=== PATIENT | female | born 1985 | race Caucasian/White ===

== ENCOUNTER 2018-03-05 11:31 | Observation (INO) | payer MEDICAID ==
[~2018-03-05] VITALS: Ht 165.1 cm; Wt 87.5 kg
[~2018-03-05 11:31] MED LIST: BENZ1TAB61 PO; CLON-365 PO; CLON0.5T PO; CLON1TAB PO; FLUP2.5T PO; FLUP5TAB PO; INVEGA; METR500T PO; TRAZ50TA18 PO; ZIPR20CA2 PO; ZIPR80CA2 PO; [UNRECOGNIZED DRUG - OTHER]
[2018-03-05 12:36] LABS: BASOPHILS # (AUTO) 0.04 x10^3/uL (0-0.1); BASOPHILS % (AUTO) 0 % (0-1); EOSINOPHILS # (AUTO) 0.33 x10^3/uL (0-0.4); EOSINOPHILS % (AUTO) 3 % (1-7); LYMPHOCYTES # (AUTO) 2.25 x10^3/uL (1-3.4); LYMPHOCYTES % (AUTO) 20 % (22-44); MD NO; MEAN CORPUSCULAR HEMOGLOBIN 29.2 pg (27.0-34.8); MEAN CORPUSCULAR VOLUME 85.9 fL (80-100); MEAN PLATELET VOLUME 8.6 fL (7.4-10.4); MONOCYTES # (AUTO) 0.41 x10^3/uL (0.2-0.8); MONOCYTES % (AUTO) 4 % (2-9); NEUTROPHILS # (AUTO) 8.31 x10^3/uL (1.8-6.8); NEUTROPHILS % (AUTO) 73 % (42-75); PLATELET COUNT 382 x10^3/uL (130-400); RED BLOOD COUNT 5.26 x10^6/uL (3.82-5.3); RED CELL DISTRIBUTION WIDTH 13.7 % (9.6-15.2)
[2018-03-05 12:45] LABS: ALBUMIN 4.1 g/dL (3.4-5.0); ANION GAP 9 mmol/L (5-15); CALCIUM 8.6 mg/dL (8.5-10.1); CHLORIDE 109 mmol/L (98-107); SALICYLATE LEVEL 4.5 mg/dL (2.8-20.0)
[2018-03-05 12:48] LABS: ACETAMINOPHEN < 2 mcg/mL (10-30); ALANINE AMINOTRANSFERASE 24 U/L (12-78); ALKALINE PHOSPHATASE 143 U/L (45-117); BILIRUBIN,TOTAL 0.2 mg/dL (0.2-1.0); CREATININE 0.91 mg/dL (0.55-1.02); TOTAL PROTEIN 8.1 g/dL (6.4-8.2)
[2018-03-05 13:24] LABS: AMPHETAMINE SCREEN, URINE Negative (Negative); BARBITURATE SCREEN, URINE Negative (Negative); BENZODIAZEPINE SCREEN, URINE Negative (Negative); CANNABINOID SCREEN, URINE Negative (Negative); COCAINE SCREEN, URINE Negative (Negative); METHADONE SCREEN, URINE Negative (Negative); OPIATE SCREEN, URINE Negative (Negative)
[2018-03-05] MEDS ORDERED: HYDR50CA PO (13:50)
[2018-03-05 16:58] LABS: HCG UR SG 1.016 (1.003-1.030)
[2018-03-05] MEDS ORDERED: ONDANSETRON ODT 4 MG PO PRN (19:00)
[2018-03-05] MEDS: NICOTINE 14MG/24 HR PATCH.TD24 TD SCH (19:00)
[2018-03-05] MEDS ORDERED: BENZTROPINE 1 MG TABLET PO PRN (19:00)
[2018-03-05] MEDS ORDERED: PLEASE ENTER HEIGHT AND WEIGHT MC SCH (19:00)
[2018-03-05] MEDS ORDERED: ACETAMINOPHEN 325 MG TABLET PO PRN (19:00)
[2018-03-05] MEDS ORDERED: BISACODYL 10 MG SUPP PR PRN (19:00)
[2018-03-05] MEDS ORDERED: ZIPRASIDONE 20 MG INJ IM PRN (19:00)
[2018-03-05 20:20] VITALS: BP 119/77
[2018-03-05] MEDS: HYDROXYZINE PAMOATE 50MG CAP PO SCH (21:00)
[2018-03-05] MEDS ORDERED: hydrOXyzine 50MG TABLET ONE (21:55)
[2018-03-06 07:47] VITALS: BP 114/77
[2018-03-06] MEDS: SENNA/DOCUSATE TABLET PO SCH ×2 (08:06→14:04)
[2018-03-06] MEDS: HYDROXYZINE PAMOATE 50MG CAP PO SCH ×2 (08:06→20:08)
[2018-03-06 11:49] LABS: MICROSCOPIC INDICATED
[2018-03-06 12:17] LABS: CULTURE INDICATED? YES
[2018-03-06] MEDS: FLUPHENAZINE 2.5 MG TABLET PO SCH (15:00)
[2018-03-06] MEDS: NICOTINE 14MG/24 HR PATCH.TD24 TD SCH (19:00)
[2018-03-06] MEDS: LORazepam 1MG TABLET PO PRN (20:08)
[2018-03-06 20:15] VITALS: BP 115/76
[2018-03-07 07:23] VITALS: BP 135/75
[2018-03-07] MEDS: FLUPHENAZINE 2.5 MG TABLET PO SCH (08:05)
[2018-03-07] MEDS: HYDROXYZINE PAMOATE 50MG CAP PO SCH ×2 (08:05→19:46)
[2018-03-07] MEDS: SENNA/DOCUSATE TABLET PO SCH (08:05)
[2018-03-07] MEDS: POLYETHYLENE GLYCOL 17 GM PACKET PO PRN (12:18)
[2018-03-07] MEDS: NICOTINE 14MG/24 HR PATCH.TD24 TD SCH (19:00)
[2018-03-07] MEDS: LORazepam 1MG TABLET PO PRN (19:46)
[2018-03-07 19:53] VITALS: BP 120/83
[2018-03-08 08:30] VITALS: BP 126/64
[2018-03-08] MEDS: FLUPHENAZINE 2.5 MG TABLET PO SCH (08:38)
[2018-03-08] MEDS: HYDROXYZINE PAMOATE 50MG CAP PO SCH ×2 (08:39→20:05)
[2018-03-08] MEDS: SENNA/DOCUSATE TABLET PO SCH (08:47)
[2018-03-08] MEDS ORDERED: LORazepam 2 MG/ML, 1ML IM PRN (15:00)
[2018-03-08] MEDS: POLYETHYLENE GLYCOL 17 GM PACKET PO PRN (17:59)
[2018-03-08] MEDS: NICOTINE 14MG/24 HR PATCH.TD24 TD SCH (18:01)
[2018-03-08 19:33] VITALS: BP 123/80
[2018-03-08] MEDS: LORazepam 1MG TABLET PO PRN (20:05)
[2018-03-09] MEDS: LORazepam 1MG TABLET PO PRN (01:08)
[2018-03-09 07:36] VITALS: BP 129/85
[2018-03-09] MEDS: FLUPHENAZINE 2.5 MG TABLET PO SCH (07:56)
[2018-03-09] MEDS: HYDROXYZINE PAMOATE 50MG CAP PO SCH (07:57)
[2018-03-09] MEDS: SENNA/DOCUSATE TABLET PO SCH (07:57)
[2018-03-09 08:07] LABS: BASOPHILS # (AUTO) 0.07 x10^3/uL (0-0.1); BASOPHILS % (AUTO) 1 % (0-1); EOSINOPHILS # (AUTO) 0.46 x10^3/uL (0-0.4); EOSINOPHILS % (AUTO) 6 % (1-7); LYMPHOCYTES % (AUTO) 31 % (22-44); MD NO; MEAN CORPUSCULAR HEMOGLOBIN 28.9 pg (27.0-34.8); MEAN CORPUSCULAR HGB CONC 34.4 g/dL (32.4-35.8); MEAN CORPUSCULAR VOLUME 84.2 fL (80-100); MEAN PLATELET VOLUME 8.3 fL (7.4-10.4); MONOCYTES # (AUTO) 0.43 x10^3/uL (0.2-0.8); MONOCYTES % (AUTO) 5 % (2-9); NEUTROPHILS # (AUTO) 4.67 x10^3/uL (1.8-6.8); NEUTROPHILS % (AUTO) 58 % (42-75); PLATELET COUNT 347 x10^3/uL (130-400); RED BLOOD COUNT 5.48 x10^6/uL (3.82-5.3); RED CELL DISTRIBUTION WIDTH 13.1 % (9.6-15.2)
== END 2018-03-09 08:38 ==
LOC: ED 15:24 → EDIP 15:25 → ED 15:56 → 2N 20:12
PROVIDERS: ADMIT Internal Medicine; ATTEND Internal Medicine
DX: F20.0 Paranoid schizophrenia (principal); F17.210 Nicotine dependence, cigarettes, uncomplicated; F41.1 Generalized anxiety disorder; F32.9 Major depressive disorder, single episode, unspecified; D72.829 Elevated white blood cell count, unspecified; K59.00 Constipation, unspecified
CPT/HCPCS: 36415; 80053; 80307; 80329; 81001; 81025; 85025; 87086; 99285; G0378; G0480

== ENCOUNTER 2018-07-14 11:28 | Emergency (ER) | payer MEDICAID ==
[~2018-07-14 11:28] MED LIST changes: -CLON-365 PO; +CLON1TAB11 PO; +HYDR50CA PO; +TRAZ-136 PO; -TRAZ50TA18 PO
[2018-07-14 11:56] LABS: BASOPHILS # (AUTO) 0.08 x10^3/uL (0-0.1); BASOPHILS % (AUTO) 1 % (0-1); EOSINOPHILS # (AUTO) 0.54 x10^3/uL (0-0.4); EOSINOPHILS % (AUTO) 6 % (1-7); LYMPHOCYTES % (AUTO) 29 % (22-44); MD NO; MEAN CORPUSCULAR HGB CONC 34.5 g/dL (32.4-35.8); MEAN CORPUSCULAR VOLUME 84.2 fL (80-100); MEAN PLATELET VOLUME 8.6 fL (7.4-10.4); MONOCYTES # (AUTO) 0.57 x10^3/uL (0.2-0.8); MONOCYTES % (AUTO) 6 % (2-9); NEUTROPHILS # (AUTO) 5.49 x10^3/uL (1.8-6.8); NEUTROPHILS % (AUTO) 59 % (42-75); PLATELET COUNT 367 x10^3/uL (130-400); RED CELL DISTRIBUTION WIDTH 12.5 % (9.6-15.2)
[2018-07-14 12:06] LABS: ANION GAP 9 mmol/L (5-15); CALCIUM 9.2 mg/dL (8.5-10.1); CHLORIDE 110 mmol/L (98-107)
[2018-07-14 12:11] LABS: AMPHETAMINE SCREEN, URINE Negative (Negative); BARBITURATE SCREEN, URINE Negative (Negative); BENZODIAZEPINE SCREEN, URINE Negative (Negative); CANNABINOID SCREEN, URINE Negative (Negative); COCAINE SCREEN, URINE Negative (Negative); METHADONE SCREEN, URINE Negative (Negative); OPIATE SCREEN, URINE Negative (Negative)
[2018-07-14 12:19] LABS: ALANINE AMINOTRANSFERASE 25 U/L (12-78); ALKALINE PHOSPHATASE 137 U/L (45-117); BILIRUBIN,TOTAL 0.2 mg/dL (0.2-1.0); CREATININE 0.84 mg/dL (0.55-1.02); SALICYLATE LEVEL 4.6 mg/dL (2.8-20.0)
[2018-07-14 12:22] LABS: ACETAMINOPHEN < 2 mcg/mL (10-30)
[2018-07-14] MEDS ORDERED: FLUPHENAZINE 1 MG TABLET PO ONE (14:00)
[2018-07-14 14:33] VITALS: BP 122/80
== END 2018-07-14 15:54 | disposition home or self-care (01) ==
LOC: ED 12:28
DX: F29 Unspecified psychosis not due to a substance or known physiological condition (principal); F25.9 Schizoaffective disorder, unspecified; F22 Delusional disorders
CPT/HCPCS: 36415; 80053; 80307; 80329; 81025; 84443; 85025; 99284; G0480

== ENCOUNTER 2020-09-22 00:10 | Emergency (ER) | payer MEDICAID ==
[~2020-09-22] VITALS: Ht 162.6 cm; Wt 91.0 kg
[~2020-09-22 00:10] MED LIST changes: -FLUP2.5T PO; +FLUP2.5T3 PO; -FLUP5TAB PO; +FLUP5TAB3 PO; -TRAZ-136 PO; +TRAZ50TA66 PO
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
--- NOTE | 2020-09-22 01:00 | NUR ---
PT SITTING UPRIGHT ON GURNEY, NAD, VSS. PT TO BATHROOM WITH STEADY GAIT TO PROVIDE URINE SAMPLE. NO NEEDS AT THIS TIME. CALL LIGHT AND PERSONAL BELONGINGS WITHIN REACH.
[2020-09-22 01:09] LABS: BASOPHILS % (AUTO) 2 % (0-1); EOSINOPHILS % (AUTO) 6 % (1-7); LYMPHOCYTES % (AUTO) 30 % (22-44); MEAN CORPUSCULAR HEMOGLOBIN 28.8 pg (27.0-34.8); MEAN CORPUSCULAR HGB CONC 34.7 g/dL (32.4-35.8); MEAN PLATELET VOLUME 8.1 fL (7.4-10.4); MONOCYTES % (AUTO) 6 % (2-9); NEUTROPHILS % (AUTO) 57 % (42-75); PLATELET COUNT 337 x10^3/uL (130-400); RED BLOOD COUNT 5.12 x10^6/uL (3.82-5.3); RED CELL DISTRIBUTION WIDTH 13.3 % (9.6-15.2)
[2020-09-22 01:14] LABS: MD NO
[2020-09-22 01:18] LABS: ALANINE AMINOTRANSFERASE 27 U/L (12-78); ALBUMIN 3.7 g/dL (3.4-5.0); ANION GAP 3 mmol/L (5-15); CALCIUM 8.8 mg/dL (8.5-10.1); CHLORIDE 108 mmol/L (98-107); CREATININE 0.92 mg/dL (0.55-1.02); SALICYLATE LEVEL 4.4 mg/dL (2.8-20.0)
[2020-09-22 01:19] LABS: HCG UR SG 1.016 (1.003-1.030); MICROSCOPIC AUTO
[2020-09-22 01:21] LABS: ALKALINE PHOSPHATASE 120 U/L (45-117); BILIRUBIN,TOTAL 0.2 mg/dL (0.2-1.0); TOTAL PROTEIN 7.2 g/dL (6.4-8.2)
[2020-09-22 01:29] LABS: AMPHETAMINE SCREEN, URINE Negative (Negative); BARBITURATE SCREEN, URINE Negative (Negative); BENZODIAZEPINE SCREEN, URINE Negative (Negative); CANNABINOID SCREEN, URINE Negative (Negative); COCAINE SCREEN, URINE Negative (Negative); METHADONE SCREEN, URINE Negative (Negative); OPIATE SCREEN, URINE Negative (Negative)
[2020-09-22 02:39] VITALS: BP 120/76
--- NOTE | 2020-09-22 02:41 | NUR ---
Patient given discharge instructions and they have confirmed that they understand the instructions. Patient ambulatory with steady gait.
== END 2020-09-22 02:43 | disposition home or self-care (01) ==
LOC: ED 00:42
DX: R10.84 Generalized abdominal pain (principal)
CPT/HCPCS: 36415; 80053; 80299; 80307; 80320; 80329; 81001; 81025; 83690; 85025; 87086; 99283; G0480